=== PATIENT | male | born 1930 | race Caucasian/White ===

== ENCOUNTER → 2017-07-31 | Outpatient (CLI) | payer OTHER | LOC: FIMAGING 10:10 | PROVIDERS: ATTEND Physical Medicine & Rehabilitation | DX: G31.9 Degenerative disease of nervous system, unspecified (principal); R90.82 White matter disease, unspecified; G93.9 Disorder of brain, unspecified ==

== ENCOUNTER → 2017-08-08 | Outpatient (CLI) | payer OTHER ==
[~2017-08-08] MED LIST: GADOBUTROL 10 ML VIAL IVP ONE
== END ==
LOC: FIMAGING 12:37
PROVIDERS: ATTEND Physical Medicine & Rehabilitation
DX: C70.0 Malignant neoplasm of cerebral meninges (principal)
CPT/HCPCS: 70553; A9585